=== PATIENT | female | born 1960 | race Caucasian/White ===

== ENCOUNTER 2024-05-11 11:48 | Emergency (ER) | payer MEDICARE, SELFPAY ==
[2024-05-11 11:51] VITALS: BP 98/72
--- NOTE | 2024-05-11 13:45 | ED.GENMED ---
History of Present Illness
General
Chief Complaint: Musculo-Skeletal Complaint
Source: patient
Exam Limitations: none
Time Seen by Provider: 05/11/24 12:09
Nursing documentation reviewed up to this point in time: agreed with
History of Present Illness
History of Present Illness:
Patient is a 64Y female who presents to the ER complaining of left knee pain. She has an upcoming appoint with orthopedics which she believes is associated [facility] because her family doctor ' she go to the ambulatory center.'
She denies any new injury. This is chronic.
she denies any new injury. Denies any fever chills or knee redness/swelling.
Review of Systems
Review of Systems
Allergies reviewed?: Yes
Constitutional: Reports no symptoms; Denies fever, fatigue or chills
Cardiac: Reports no symptoms
ABD/GI: Reports no symptoms
Musculoskeletal: Reports other (left knee pain ; denies any swelling denies any calf pain )
Skin: Reports no symptoms
Neurological: Reports no symptoms
Hematologic/Lymphatic: Reports no symptoms
Psychiatric: Reports no symptoms
Phy Exam
General Physical Exam
General Presentation: no apparent distress
General age: appears stated age
General Skin: warm and dry
General Habitus: normal
General Mental: alert
Neurological Exam
Neurological Exam: alert and oriented x3
Musculoskeletal Exam
Musculoskeletal Exam: other (Left lower extremity strong pulses able to flex and extend no effusion no erythema/swelling on exam; no swelling/tenderness to calf)
Skin Exam
Skin Exam: normal color and warm/dry
Psychiatric Exam
Psychiatric Exam: normal mood/affect
Course
Orders/Labs/Results
Orders:
Orders
05/11/24 12:31
Knee, Left 4 or More Views [CR Knee - Left 4 Or More View*] Urgent
Comment:
Reason For Exam: pain
Vital Signs
Initial and Last Documented VS:
Initial Vital Signs
Temp Pulse Resp BP Pulse Ox
97.9 F 65 18 98/72 97
05/11/24 11:51 05/11/24 11:51 05/11/24 11:51 05/11/24 11:51 05/11/24 11:51
Last Documented Vital Signs
Temp Pulse Resp BP Pulse Ox
97.9 F 65 18 98/72 97
05/11/24 11:51 05/11/24 11:51 05/11/24 11:51 05/11/24 11:51 05/11/24 11:51
MDM/Problems Addressed
Differential Diagnosis Includes:
not limited to: Osteoarthritis of left knee
MDM/Problems Addressed:
Patient with chronic knee pain/arthritis of the left knee presents here to the ER. X-ray shows findings consistent with osteoarthritis no obvious swelling or evidence infection on exam patient has appoint with orthopedic this week. Patient has a
very odd affect appears very sleepy tells me she is on sleeping medication because she cannot sleep throughout the night. She is very vague in history but only complaint is chronic left knee pain.
will DC with outpatient follow-up. No other complaints. No injury afebrile no acute distress.
*Radiology
Radiology exam reviewed: radiology read reviewed
*Critical Care Note
Total Time (30-74mins, 75-104mins- exclusive of procedures): Not Applicable
ED Attending Note
-
Portions of this chart may have been created with voice recognition software.� Occasional wrong word or��sound alike� substitutions may have occurred due to the inherent limitations of voice recognition software.
Discharge Plan
Departure
Patient Disposition: Home (Routine Discharge)
Date of Disposition: 05/11/24
Time of Disposition: 13:46
Patient with high blood pressure during this ER visit?: No
Condition: Fair
Covid-19: Not Applicable
Discharge Problem:
Acute knee pain
Instructions: Knee Pain (DC)
Referrals:
Rickey Waggoner, DO [Family Provider] -
Activity Restrictions/Additional Instructions:
Follow-up with orthopedics this week as scheduled. Your x-ray does show arthritis. You may take Tylenol for discomfort. REturn if any worsening of symptoms. She is
Interventions
Interventions:
*Risk Screen - Suicide Last Done: 05/11/24 11:57
*General Assessment Last Done: 05/11/24 11:57
*Neglect/Abuse Screening Last Done: 05/11/24 11:57
ED- Fall Risk Assessment Last Done: 05/11/24 14:01
*ED COVID-19 Vaccine History Last Done: 05/11/24 11:57
*Nursing Disposition Last Done: 05/11/24 14:01
ED-Musculoskeletal Assessment Last Done: 05/11/24 12:48
Discharge Date and Time
Discharge Date/Time: 05/11/24 14:03
Print Language: SINHALA
== END 2024-05-11 14:03 | disposition home or self-care (01) ==
LOC: EMR 11:48
PROVIDERS: EMERGENCY PHYSICIAN Emergency Medicine; FAMILY PHYSICIAN Internal Medicine
DX: M25.562 Pain in left knee (principal)
CPT/HCPCS: 99283; 73564